=== PATIENT | female | born 1965 | race Caucasian/White ===

== ENCOUNTER 2018-10-26 23:37 | Emergency (ER) | payer OTHER ==
[~2018-10-26] VITALS: Ht 160 cm; Wt 79.5 kg
[~2018-10-26 23:37] MED LIST: HYDR-3980 PO; SULF1TAB31 PO
[2018-10-26 23:46] VITALS: Ht 160 cm; Wt 79.5 kg
[2018-10-26] MEDS ORDERED: SOD CHLORIDE 0.9% 1,000 ML IV STA (23:55)
[2018-10-26] MEDS ORDERED: morphine 4 MG/ML VIAL IV STA (23:55)
[2018-10-26] MEDS ORDERED: ONDANSETRON 4 MG INJ IV STA (23:55)
[2018-10-27 02:01] VITALS: BP 155/93; PULSE 86; RESP 18
--- NOTE | 2018-10-27 02:03 | ERD ---
ER Documentation Chief Complaint Chief Complaint C/O WORSENING LT SIDED FLANK PAIN X5 DAYS HPI 53-year-old female complains of left-sided flank pain for 5 days. She was seen in the hospital and was essentially diagnosed with nontypeable flank pain. Because of worsening flank. Complains of dysuria. Denies fevers or chills. Denies nausea vomiting. Pain is mild to moderate in intensity with no exacerbating alleviating factors. Denies any other current issues. ROS All systems reviewed and are negative except as per history of present illness. Medications Home Meds Active Scripts Hydrocodone/Acetaminophen ([place] 10-325 Tablet) 1 Each Tablet, 1 TAB PO Q6H PRN for PAIN, #20 TAB Prov:HEATHER GOMEZ S. 10/27/18 Sulfamethoxazole/Trimethoprim* (Bactrim Ds* Tablet) 1 Each Tablet, 1 TAB PO BID, #14 TAB Prov:HEATHER GOMEZ S. 10/27/18 Allergies Allergies: Coded Allergies: Penicillins (Verified Allergy, Unknown, 10/26/18) PMhx/Soc Medical and Surgical Hx: pt denies Surgical Hx Hx Alcohol Use: No Hx Substance Use: No Hx Tobacco Use: No Smoking Status: Never smoker Physical Exam Vitals Vital Signs Date Temp Pulse Resp B/P (MAP) Pulse Ox O2 O2 Flow FiO2 Time Delivery Rate 10/26/18 97.3 81 22 165/81 99 Room Air 23:58 (109) 10/26/18 97.3 98 22 187/76 99 23:46 (113) Physical Exam Const: No acute distress Head: Atraumatic Eyes: Normal Conjunctiva ENT: Normal External Ears, Nose and Mouth. Neck: Full range of motion. No meningismus. Resp: Clear to auscultation bilaterally Cardio: Regular rate and rhythm, no murmurs Abd: Soft, non tender, non distended. Normal bowel sounds Skin: No petechiae or rashes Back: No midline or flank tenderness Ext: No cyanosis, or edema Neur: Awake and alert Psych: Normal Mood and Affect Result Diagram: 10/26/18 0011 10/26/18 0011 Results 24 hrs Laboratory Tests Test 10/26/18 00:11 White Blood Count 7.2 10^3/ul Red Blood Count 4.35 10^6/ul Hemoglobin 10.2 g/dl Hematocrit 34.8 % Mean Corpuscular Volume 80.0 fl Mean Corpuscular Hemoglobin 23.4 pg Mean Corpuscular Hemoglobin Concent 29.3 g/dl Red Cell Distribution Width 17.9 % Platelet Count 432 10^3/UL Mean Platelet Volume 9.8 fl Immature Granulocytes % 0.300 % Neutrophils % 66.4 % Lymphocytes % 26.4 % Monocytes % 4.5 % Eosinophils % 1.8 % Basophils % 0.6 % Nucleated Red Blood Cells % 0.0 /100WBC Immature Granulocytes # 0.020 10^3/ul Neutrophils # 4.8 10^3/ul Lymphocytes # 1.9 10^3/ul Monocytes # 0.3 10^3/ul Eosinophils # 0.1 10^3/ul Basophils # 0.0 10^3/ul Nucleated Red Blood Cells # 0.0 10^3/ul Sodium Level 138 mmol/L Potassium Level 4.7 mmol/L Chloride Level 100 mmol/L Carbon Dioxide Level 31 mmol/L Anion Gap 7 Blood Urea Nitrogen 36 mg/dl Creatinine 1.28 mg/dl Est Glomerular Filtrat Rate mL/min 44 mL/min Glucose Level 129 mg/dl Calcium Level 9.2 mg/dl Total Bilirubin 0.6 mg/dl Direct Bilirubin 0.00 mg/dl Indirect Bilirubin 0.6 mg/dl Aspartate Amino Transf (AST/SGOT) 18 IU/L Alanine Aminotransferase (ALT/SGPT) 16 IU/L Alkaline Phosphatase 172 IU/L Total Protein 8.4 g/dl Albumin 4.0 g/dl Globulin 4.40 g/dl Albumin/Globulin Ratio 0.90 Lipase 59 U/L Current Medications Medications Dose Sig/Colleen Start Time Status Last (Trade) Ordered Route PRN Stop Time Admin Dose Reason Admin Sodium 1,000 ml @ Q1H STAT 10/26/18 DC 10/27/18 Chloride 1,000 mls/hr IV 23:55 00:27 10/27/18 00:54 Morphine 4 mg ONCE STAT 10/26/18 DC 10/27/18 Sulfate IV 23:55 00:27 (morphine) 10/26/18 23:57 Ondansetron 4 mg ONCE STAT 10/26/18 DC 10/27/18 HCl (Zofran IV 23:55 00:27 Inj) 10/26/18 23:57 Procedures/MDM Medical decision making: Patient's gastrointestinal symptoms have stabilized while in the department. No evidence of severe dehydration, sepsis, or surgical abdomen. Extensive discussion with family and patient that occult disease cannot be ruled out. 8 hour recheck for repeat abdominal exam is planned. Departure Diagnosis: Primary Impression: Flank pain Condition: Stable Patient Instructions: Flank Pain, Uncertain Cause HEATHER GOMEZ Oct 27, 2018 02:02
== END 2018-10-27 02:21 | disposition home or self-care (01) ==
LOC: E/R 23:37
DX: R10.9 Unspecified abdominal pain (principal)
CPT/HCPCS: 36415; 74176; 80053; 83690; 85025; 96374; 96375; J2270; J2405; J7030; Z7502